=== PATIENT | male | born 1990 | race Two or more races ===

== ENCOUNTER 2024-11-03 11:20 | Inpatient (IN) | payer OTHER ==
[2024-11-03 11:51] VITALS: BMI 24.9
[2024-11-03] MEDS ORDERED: BENZONATATE 200 MG CAPSULE PO PRN (12:39)
[2024-11-03] MEDS ORDERED: ONDANSETRON *ODT* 4 MG TABLET SL PRN (12:39)
[2024-11-03] MEDS ORDERED: MAG HYDROX/AL HYDROX/SIMETH 30 ML UNIT-DOSE CUP PO PRN (12:39)
[2024-11-03] MEDS ORDERED: NALOXONE (NARCAN) HCL 4 MG/0.1 ML SPRAY NS PRN (12:39)
[2024-11-03] MEDS ORDERED: ACETAMINOPHEN 325 MG TABLET (FP) PO PRN (12:39)
[2024-11-03] MEDS ORDERED: BENZOCAINE/MENTHOL (CHLORASEPTIC ) LOZENGE MM PRN (12:39)
[2024-11-03] MEDS ORDERED: POLYETHYLENE GLYCOL (HEALTHYLAX) 3350 17 GM PACKET PO PRN (12:39)
[2024-11-03] MEDS ORDERED: MAGNESIUM HYDROX 2400MG/30ML ORAL SUSPENSION 30 ML CUP PO PRN (12:39)
[2024-11-03] MEDS ORDERED: NICOTINE POLACRILEX 2 MG GUM BUC PRN (12:39)
[2024-11-03] MEDS ORDERED: DICYCLOMINE HCL 10 MG CAPSULE PO PRN (12:39)
[2024-11-03] MEDS ORDERED: IBUPROFEN 600 MG TABLET (FP) PO PRN (12:39)
[2024-11-03] MEDS ORDERED: LOPERAMIDE HCL 2 MG CAPSULE PO PRN (12:39)
[2024-11-03] MEDS ORDERED: BISMUTH SUBSALICYLATE 524 MG/30 ML PO PRN (12:39)
[2024-11-03] MEDS ORDERED: guaiFENesin 600 MG TABLET.ER (FP) PO PRN (12:39)
[2024-11-03] MEDS ORDERED: IBUPROFEN 400 MG TABLET (FP) PO PRN (12:39)
[2024-11-03] MEDS: hydrOXYzine PAMOATE 25 MG CAPSULE (FP) PO PRN (15:06)
[2024-11-03] MEDS: METHOCARBAMOL 500 MG TABLET PO PRN (15:06)
[2024-11-03] MEDS: LORazepam 1 MG TABLET PO PRN (17:06)
[2024-11-03] MEDS: LORazepam 2 MG TABLET PO SCH (17:08)
[2024-11-03] MEDS: THIAMINE 100 MG TABLET PO SCH (22:28)
[2024-11-03] MEDS: MELATONIN 5 MG TABLETS PO SCH (22:29)
[2024-11-04 08:44] VITALS: BP 139/85; PULSE 100; RESP 18; TEMP 98.6
[2024-11-04] MEDS: NICOTINE 14 MG/24 HOURS TOPICAL PATCH TD SCH (09:54)
[2024-11-04] MEDS: PRENATAL VITAMINS W/ FOLIC ACID TABLET (FP) PO SCH (09:54)
[2024-11-05] MEDS ORDERED: LORazepam 1 MG TABLET PO SCH (05:00)
[2024-11-06] MEDS ORDERED: LORazepam 0.5 MG TABLET PO PRN
[2024-11-06] MEDS ORDERED: LORazepam 0.5 MG TABLET PO SCH (05:00)
[2024-11-07] MEDS ORDERED: LORazepam 0.5 MG TABLET PO ONE (05:00)
== END 2024-11-04 10:00 | disposition left against medical advice (07) | DRG 894 ==
LOC: YASAS 11:20 → Y6N 13:36
PROVIDERS: ADMIT Allergy & Immunology; ATTEND Allergy & Immunology
PROC: HZ2ZZZZ Detoxification Services for Substance Abuse Treatment (ICD-10-PCS; principal; 2024-11-03)
DX: F10.230 Alcohol dependence with withdrawal, uncomplicated (principal); F17.210 Nicotine dependence, cigarettes, uncomplicated; F32.A Depression, unspecified; K70.30 Alcoholic cirrhosis of liver without ascites; Z86.2 Personal history of diseases of the blood and blood-forming organs and certain disorders involving the immune mechanism
CPT/HCPCS: 80305; 80307; 93005; 93010